=== PATIENT | female | born 1945 | race Caucasian/White ===

== ENCOUNTER 2019-04-11 08:49 | Day surgery (SDC) | payer MEDICARE ==
[~2019-04-11] VITALS: Ht 157.5 cm; Wt 65.1 kg
[~2019-04-11 08:49] MED LIST: Amlodipine Besy10 MG PO; Amlodipine Besyl5 MG PO; COENZYME Q10100 MG PO; Flonase 0.05% N16 GM; IBUPROFEN200 MG; LOSARTAN POTASS50 MG PO; METAMUCIL660 GM; OXYC5 PO; RED YEAST RICE600 MG; XARELTO10 MG PO
[2019-04-11] MEDS ORDERED: D3 + K2 Dots 11 EACH (09:34)
[2019-04-11] MEDS ORDERED: TURMERIC 500 M1 EACH (09:34)
[2019-04-11] MEDS ORDERED: KRILL OIL500 MG (09:34)
--- NOTE | 2019-04-11 10:53 | NUR ---
04/11/19 1053 Susie Hernandes PT. DENIES PAIN. PT. VERBALIZES ABLE TO FEEL TOUCH TO FINGERS. PT. ABLE TO WIGGLE FINGERS. PT. VERBALIZES HAND ITCHES. INSTRUCTED COULD BE THAT HER NUMBING MEDICATION COULD BE WEARING OFF. RIGHT HAND ELEVATED UP ON PILLOW. PT. DRINKING WATER & COOKIES. PT. GIVEN WARM BLANKETS & AT SIDE & DR. RECINOS TALKED WITH PT. & HER . CALL LIGHT IS WITHIN REACH.
== END 2019-04-11 11:35 | disposition home or self-care (01) ==
LOC: ORSCSDS 08:49
PROVIDERS: Orthopaedic Surgery
PROC: 01N50ZZ Release Median Nerve, Open Approach (ICD-10-PCS; principal; 2019-04-11 10:00)
DX: G56.01 Carpal tunnel syndrome, right upper limb (principal); I10 Essential (primary) hypertension; E78.00 Pure hypercholesterolemia, unspecified; Z79.899 Other long term (current) drug therapy
CPT/HCPCS: J0690; J2250; J2405; J2704; J3010; J7120

== ENCOUNTER 2023-01-01 07:30 | Emergency (ER) | payer MEDICARE, OTHER ==
[~2023-01-01] VITALS: Ht 157.5 cm; Wt 66.2 kg
[~2023-01-01 07:30] MED LIST changes: +D3 + K2 Dots 11 EACH; +KRILL OIL500 MG; +TURMERIC 500 M1 EACH
[2023-01-01 07:55] LABS: BASOPHILS ABSOLUTE AUTO 0.01 K/mm3 (0.00-0.23); BASOPHILS PERCENT AUTO 0 % (0-2); EOSINOPHILS PERCENT AUTO 0 % (0-6); Hematocrit 39.8 % (33.0-51.0); Hemoglobin 13.6 g/dL (11.5-16.0); IMMATURE GRAN ABSOLUTE AUTO 0.04 K/mm3 (0.00-0.10); IMMATURE GRAN PERCENT AUTO 0 % (0-1); LYMPHOCYTES ABSOLUTE AUTO 0.83 K/mm3 (0.84-5.20); LYMPHOCYTES PERCENT AUTO 9 % (21-46); MONOCYTES ABSOLUTE AUTO 0.59 K/mm3 (0.16-1.47); MONOCYTES PERCENT AUTO 6 % (4-13); Mean Corpuscular HGB 27.9 pg (26.0-34.0); Mean Corpuscular HGB Conc 34.2 g/dL (31.5-36.5); Mean Corpuscular Volume 82 fL (80-100); Mean Platelet Volume 9.6 fL (9.1-12.4); NEUTROPHILS ABSOLUTE AUTO 7.86 K/mm3 (1.96-9.15); NEUTROPHILS PERCENT AUTO 84 % (41-73); Platelet Count 271 K/mm3 (150-400); RDW Coefficient Variation 12.9 % (11.7-14.2); RDW Standard Deviation 38.6 fL (35.1-46.3); Red Blood Cell Count 4.87 M/mm3 (3.80-5.20); White Blood Cell Count 9.33 K/mm3 (4.00-11.30)
[2023-01-01 08:17] LABS: Bilirubin, Total 0.5 mg/dL (0.1-1.0); Bun/Creatinine Ratio 24.1 (12.0-20.0); Calcium, Blood 9.2 mg/dL (8.5-10.1); Creatinine, Blood 0.58 mg/dL (0.40-1.00); Globulin, Blood 4.1 g/dL (2.2-4.0); Potassium, Blood 3.3 mmol/L (3.5-5.5); Total Protein, Blood 8.1 g/dL (6.4-8.2)
[2023-01-01 10:12] LABS: Source, Urine Clean Catch
[2023-01-01 11:06] LABS: Appearance, Urine Clear (Clear); Bilirubin, Urine Neg (Neg); Blood, Urine 1+ (Neg); Glucose Qualitative, Urine Neg (Neg); Ketones, Urine 1+ (Neg); Leukocyte Esterase, Urine Neg (Neg); Nitrite, Urine Neg (Neg); Protein, Urine Neg (Neg); Urobilinogen, Urine NORM (Normal)
[2023-01-01 11:44] LABS: Color, Urine Pale Yellow (P-Yellow)
[2023-01-01 11:45] LABS: Bacteria Not Seen /hpf; Red Blood Cells, Urine 0-2 /hpf (0-2); Squamous Epithelial Cells Not Seen /hpf (Few); White Blood Cells, Urine 0-2 /hpf (0-5)
[2023-01-01 11:50] VITALS: BP 163/75
[2023-01-01] MEDS ORDERED: ONDA4ODT MM (12:05)
[2023-01-01] MEDS ORDERED: Protonix40 MG PO (12:05)
== END 2023-01-01 12:32 | disposition home or self-care (01) ==
LOC: ER 07:30
PROVIDERS: Emergency Medicine
DX: K59.00 Constipation, unspecified (principal); E87.6 Hypokalemia; N85.8 Other specified noninflammatory disorders of uterus; R11.2 Nausea with vomiting, unspecified; I10 Essential (primary) hypertension; E78.5 Hyperlipidemia, unspecified; Z88.5 Allergy status to narcotic agent; Z79.899 Other long term (current) drug therapy
CPT/HCPCS: 74177; 76856; 80053; 81001; 83690; 85025; 96360-59; 99285-25; A9270; J7030; Q9967

== ENCOUNTER 2023-04-09 07:48 | Day surgery (SDC) | payer MEDICARE, OTHER ==
[~2023-04-09] VITALS: Ht 157.5 cm; Wt 64.1 kg
[~2023-04-09 07:48] MED LIST changes: +ONDA4ODT MM; +Protonix40 MG PO
[2023-04-09] MEDS ORDERED: IBUP200 (08:05)
[2023-04-09 10:00] VITALS: BP 115/63
== END 2023-04-09 09:57 | disposition home or self-care (01) ==
LOC: ORSCSDS 07:48
PROVIDERS: Specialist
PROC: 0DBH8ZX Excision of Cecum, Via Natural or Artificial Opening Endoscopic, Diagnostic (ICD-10-PCS; principal; 2023-04-09 09:00)
DX: Z12.11 Encounter for screening for malignant neoplasm of colon (principal); R19.5 Other fecal abnormalities; D12.0 Benign neoplasm of cecum; K57.30 Diverticulosis of large intestine without perforation or abscess without bleeding; K64.8 Other hemorrhoids
CPT/HCPCS: 88305; J2704; J7120

== ENCOUNTER → 2023-09-18 | Outpatient (CLI) | payer MEDICARE, OTHER ==
[~2023-09-18] MED LIST changes: +IBUP200
[2023-09-18 16:06] LABS: Albumin/Globulin Ratio 1.1 (0.8-1.8); Bilirubin, Total 0.3 mg/dL (0.1-1.0); Bun/Creatinine Ratio 24.5 (12.0-20.0); Calcium, Blood 9.7 mg/dL (8.5-10.1); Creatinine, Blood 0.73 mg/dL (0.40-1.00); Globulin, Blood 3.7 g/dL (2.2-4.0); Potassium, Blood 3.8 mmol/L (3.5-5.5); Total Protein, Blood 7.7 g/dL (6.4-8.2)
== END | disposition home or self-care (01) ==
LOC: LAB SHORT 10:30 → LAB 10:30
PROVIDERS: Hospitalist
DX: I10 Essential (primary) hypertension (principal); R73.9 Hyperglycemia, unspecified
CPT/HCPCS: 80053; 83036

== ENCOUNTER → 2024-12-09 | Outpatient (CLI) | payer MEDICARE, OTHER ==
[2024-12-09 14:44] LABS: Anion Gap 8.0 mmol/L (3-11); Blood Urea Nitrogen 20.0 mg/dL (8-24); CO2, Blood 29.0 mmol/L (21-32); Calcium, Blood 9.2 mg/dL (8.5-10.1); Chloride, Blood 104.0 mmol/L (98-108); Creatinine, Blood 0.79 mg/dL (0.40-1.00); Glucose, Blood 94.0 mg/dL (70-99); Potassium, Blood 3.9 mmol/L (3.5-5.5); Sodium, Blood 137.0 mmol/L (136-145)
== END ==
LOC: LAB 10:25 → LAB SHORT 10:25
PROVIDERS: Hospitalist
DX: I10 Essential (primary) hypertension (principal)
CPT/HCPCS: 80048